=== PATIENT | female | born 1985 | race Caucasian/White ===

== ENCOUNTER 2025-02-21 06:21 | Day surgery (SDC) | payer BC, SELFPAY ==
[2025-02-21 09:17] LABS: Glucose - Point of Care 85 mg/dl (70-99)
== END 2025-02-21 10:31 | disposition home or self-care (01) ==
LOC: GI 06:21
PROVIDERS: ATTENDING PHYSICIAN Internal Medicine Gastroenterology
DX: R19.4 Change in bowel habit (principal); K64.8 Other hemorrhoids
CPT/HCPCS: 45380; 82962; 88305